=== PATIENT | male | born 1980 | race Caucasian/White ===

== ENCOUNTER 2024-11-26 07:56 | Emergency (ER) | payer OTHER, SELFPAY ==
[2024-11-26 08:03] VITALS: BP 134/85
[2024-11-26] MEDS: DELTASONE 50 MG PO (09:38)
[2024-11-26] MEDS: TORADOL 30 MG IM (09:39)
--- NOTE | 2024-11-26 09:52 | ED.GENMED ---
History of Present Illness
General
Chief Complaint: Musculo-Skeletal Complaint
Time Seen by Provider: 11/26/24 08:45
History of Present Illness
History of Present Illness:
see MDM
Phy Exam
Physical Exam
Physical Exam:
see MDM
Course
Orders/Labs/Results
Orders:
Orders
11/26/24 09:27
Ketorolac [Toradol] 30 mg IM NOW STA
Prednisone [Deltasone] 50 mg PO NOW STA
Vital Signs
Initial and Last Documented VS:
Initial Vital Signs
Temp Pulse Resp BP Pulse Ox
37.1 C 74 16 134/85 97
11/26/24 08:03 11/26/24 08:03 11/26/24 08:03 11/26/24 08:03 11/26/24 08:03
Last Documented Vital Signs
Temp Pulse Resp BP Pulse Ox
37.1 C 74 16 134/85 97
11/26/24 08:03 11/26/24 08:03 11/26/24 08:03 11/26/24 08:03 11/26/24 08:03
MDM/Problems Addressed
Differential Diagnosis Includes:
see MDM
MDM/Problems Addressed:
Note:
CHIEF COMPLAINT(S)
Pain in the right arm and neck.
HISTORY OF PRESENT ILLNESS
The patient is a 44-year-old male presenting with severe right arm pain and neck pain, attributed to a suspected pinched nerve. The symptoms began approximately one week ago when he woke up, he thought he slept wrong on his neck with mild pain in
the entire right arm, which progressively worsened. By 3 days ago, the patient could no longer tolerate the pain and sought care at an urgent care facility, where they were advised to consult their primary physician for an MRI. The patient described
the pain as constant with exacerbations, especially when ambulating, leading to 'shooting' pains down the arm into the fingers. The patient reports accompanying symptoms of numbness throughout the hand that started yesterday. Movement of the neck to
the right side exacerbates the pain, although not as severely. The patient exhibits full range of motion of the neck and right arm, yet experiences pain radiating from the shoulder blade down to the arm and occasionally into the fingers.
Patient has no exertional chest pain, shortness of breath, headache, vision changes, recent neck trauma or chiropractor manipulation, arm swelling, color change to the arm
PAST MEDICAL AND SURGICAL HISTORY
The patient has a history of fibromyalgia.
CHRONIC MEDICAL CONDITIONS SIGNIFICANTLY AFFECTING CARE
Fibromyalgia.
SOCIAL HISTORY
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
MEDICATIONS
The patient is on chronic medications including Duloxetine (Cymbalta) and Propranolol for essential tremors. Recent prescriptions include Flurazepam for nighttime use and Prednisone, which the patient has taken for three days this past week.
REVIEW OF SYSTEMS
- Musculoskeletal: Severe pain in the right arm and neck.
- Neurological: Numbness in entire right hand.
PHYSICAL EXAM
GENERAL: Alert , in no apparent distress, comfortable at rest
HEAD: NCAT
NECK: no midline tenderness, active ROM intact, right paraspinal muscle tenderness cervical, right trapezial tenderness moderately, full range of motion of his neck, positive Spurling's
CARDIAC: Regular rate and rhythm, no edema
LUNGS: Clear breath sounds bilaterally, no acute respiratory distress, no wheezes/rales/rhonchi
ABDOMEN: Soft, without focal tenderness, no r/g, no cvat, normal bowel sounds, nondistended
NEUROLOGICAL: Alert and oriented, no focal neuro deficits, CN intact, 5/5 strength, sensation intact to light touch, ambulation normal
SKIN: Warm and dry,
MUSCULOSKELETAL: right arm and shoulder normal inspection, no swelling, normal perfusion, full range of motion mfort
PSYCH: Normal and appropriate interaction.
Nursing notes reviewed and vital signs reviewed.
PROBLEM LIST
Acute:
- Right arm and neck pain with radicular symptoms.
Chronic:
- Fibromyalgia.
PLAN
1. Increase the dosage of Prednisone to a higher burst for several days, then taper.
2. Adjust current pain medication regimen, considering stronger pain management options.
3. Transition Gabapentin dosing to three times a day, adjusting the dosage accordingly.
4. Order imaging for the neck to evaluate potential disc-related issues.
DIFFERENTIAL DIAGNOSIS
The Differential Diagnosis includes, in no particular order, and is not limited to:
1. Cervical Radiculopathy
2. Cervical Disc Herniation
3. Cervical Spondylosis
4. Thoracic Outlet Syndrome
5. Peripheral Neuropathy
6. Brachial Plexus Injury
7. Fibromyalgia Flare
8. Rotator Cuff Injury
9. Carpal Tunnel Syndrome
10. Cervical Myelopathy
CARE-UPDATE
11/26/24 - 09:34
Patient had x-ray imaging of his neck as an outpatient at urgent care which was unremarkable.
Symptoms are consistent with cervical radiculopathy, there is no red flag symptoms like weakness or objective sensory deficits, he has no signs of thoracic outlet syndrome and no risk factors.
Given that he had already started prednisone 20 mg for the last 3 days I will give him on extended taper.. The treatment plan involves starting prednisone at 50 mg today, with a tapering schedule of 50 mg for three days, 40 mg for the next three
days, 30 mg for another three days, and finally 20 mg for three days. The patient is to discontinue the previous 20 mg prednisone dosage. Oxycodone is prescribed for nighttime or daytime use when not driving. Gabapentin is to be continued, with a
recommendation to add a midday dose rather than increasing morning and night doses. The prescription will be sent to [facility] in [facility].
*Pulse Oximetry
SaO2: 97
Oxygen Mode of Delivery: Room air
Patient hypoxic: no (97)
*Critical Care Note
Total Time (30-74mins, 75-104mins- exclusive of procedures): Not Applicable
ED Attending Note
-
Portions of this chart may have been created with voice recognition software.� Occasional wrong word or��sound alike� substitutions may have occurred due to the inherent limitations of voice recognition software.
Discharge Plan
Departure
Patient Disposition: Home (Routine Discharge)
Date of Disposition: 11/26/24
Time of Disposition: 09:34
Patient with high blood pressure during this ER visit?: No
Condition: Fair
Covid-19: Not Applicable
Discharge Problem:
Cervical radiculopathy
Instructions: Radiculopathy of the neck and back (including sciatica) (DC)
Prescriptions:
New
prednisone 10 mg Tablet
See Rx Instructions .ROUTE .COMPLEX Qty: 40 0RF
Rx Instructions:
Take By Mouth:
50 mg daily x 2 days, 40 mg daily x3 days, 30 mg daily x3 days,
20 mg daily x3 days, 10 mg daily x3 days.
oxycodone 5 mg tablet
5 mg PO TID PRN (Reason: Pain) Qty: 10 0RF
Activity Restrictions/Additional Instructions:
You do likely have a pinched nerve or disc herniation in your neck that will require MRI imaging. You should stop the prednisone 20 mg and instead do 50 mg once a day for the next 2 days, then 40 mg once a day for 3 days, 30 mg once a day for 3
days, then 20 mg once a day for 3 days, then 10 mg once a day for 3 days.
For pain you can take Tylenol 3 times a day
Continue your gabapentin but take a middle dose of 100 to 300 mg in the middle of the day
And for pain you can also try oxycodone 5 mg, this is a sedating medication. While you are on this you should be on a stool softener. Make sure to space it out from your gabapentin so that you are not too sleepy. Return for arm weakness,
significant numbness, severe pain, fever or chills, vision changes or any concerns
Interventions
Interventions:
*Risk Screen - Suicide Last Done: 11/26/24 08:03
*Neglect/Abuse Screening Last Done: 11/26/24 08:05
Discharge Date and Time
Print Language: [place]IZ[place]
== END 2024-11-26 09:46 | disposition home or self-care (01) ==
LOC: EMR 07:56
PROVIDERS: EMERGENCY PHYSICIAN Emergency Medicine; FAMILY PHYSICIAN Family Medicine
DX: M54.12 Radiculopathy, cervical region (principal); M79.7 Fibromyalgia; G25.0 Essential tremor
CPT/HCPCS: 99284; 96372

== ENCOUNTER → 2024-12-01 07:52 | Outpatient (REF) | payer OTHER, SELFPAY | LOC: EMG 07:52 | PROVIDERS: ATTENDING PHYSICIAN Physician Assistant Medical | DX: M54.12 Radiculopathy, cervical region (principal); R20.0 Anesthesia of skin | CPT/HCPCS: 95886; 95910 ==